=== PATIENT | female | born 1950 | race Caucasian/White ===

== ENCOUNTER → 2023-11-21 | Outpatient (CLI) | payer MEDICARE ==
[2023-11-21 12:34] LABS: ALBUMIN 4.6 g/dL (3.4-4.8)
[2023-11-21 12:36] LABS: TOTAL PROTEIN 8.2 g/dL (6.2-8.1)
[2023-11-21 12:38] LABS: TOTAL BILIRUBIN 0.6 mg/dL (0.2-1.2)
== END ==
LOC: LAB 12:05
PROVIDERS: Family Medicine
DX: K76.0 Fatty (change of) liver, not elsewhere classified (principal); Z86.39 Personal history of other endocrine, nutritional and metabolic disease

== ENCOUNTER → 2024-03-18 | Outpatient (CLI) | payer MEDICARE ==
[2024-03-18 11:19] LABS: ALBUMIN 4.6 g/dL (3.4-4.8)
[2024-03-18 11:20] LABS: CALCIUM 9.7 mg/dL (8.3-10.5)
[2024-03-18 11:22] LABS: TOTAL PROTEIN 8.5 g/dL (6.2-8.1)
[2024-03-18 11:23] LABS: TOTAL BILIRUBIN 0.7 mg/dL (0.2-1.2)
== END ==
LOC: LAB 10:53
PROVIDERS: Family Medicine
DX: K76.0 Fatty (change of) liver, not elsewhere classified (principal); Z86.39 Personal history of other endocrine, nutritional and metabolic disease